=== PATIENT | male | born 1960 | race Caucasian/White ===

== ENCOUNTER 2017-11-15 14:30 | Outpatient (REF) | payer MEDICARE, MEDICAID, SELFPAY ==
[2017-11-15 21:26] LABS: Abs Immature Grans 0.02 k/cumm (0.0-0.09); Absolute Basophil Count 0.08 k/cumm (0.0-0.2); Absolute Eosinophil Count 0.46 k/cumm (0.0-0.7); Absolute Lymphocyte Count 2.71 k/cumm (1.2-3.4); Absolute Monocyte Count 0.83 k/cumm (0.11-0.7); Eosinophils % 5.9; HCT 41.6 % (40.0-50.0); HGB 13.8 g/dL (13.5-17.5); Immature Grans % 0.3; Lymphocytes % 34.7; Mean Corp. HGB Concentration 33.2 g/dL (32.0-36.0); Mean Corpuscular Volume 93.5 fL (80-95); Mean Platelet Volume 11.3 fL (8.0-11.0); Monocytes % 10.6; Neutrophils % 47.5; Platelet Count 268 x1000/uL (130-400); RBC 4.45 m/cumm (4.50-6.00); RBC Distribution Width 12.6 % (11.8-14.1)
[2017-11-15 21:37] LABS: ALT 21 U/L (12-78); AST 16 U/L (15-37); Albumin 3.6 g/dL (3.4-5.0); Alkaline Phosphatase 92 U/L (46-116); Anion Gap 5.7 mmol/L (3-11); BUN 16 mg/dL (7-18); Bilirubin, Total 0.3 mg/dL (0.2-1.0); CO2 26.3 mmol/L (21.0-32.0); CREATININE 1.08 mg/dL (0.70-1.30); Calcium 8.5 mg/dL (8.5-10.1); Chloride 107 mmol/L (98-107); Glucose 115 mg/dL (70-100); Potassium 4.7 mmol/L (3.5-5.1); Sodium 139 mmol/L (136-145); Total Protein 6.8 g/dL (6.4-8.2)
== END 2017-11-15 14:50 ==
LOC: NCHCN 14:30
PROVIDERS: PCP Nurse Practitioner; Visit Provider Nurse Practitioner
DX: Z51.81 Encounter for therapeutic drug level monitoring (principal)
CPT/HCPCS: 80053; 85025

== ENCOUNTER 2018-04-11 10:45 | Outpatient (REF) | payer MEDICARE, MEDICAID, SELFPAY ==
[2018-04-11 13:58] LABS: Abs Immature Grans 0.01 k/cumm (0.0-0.09); Absolute Basophil Count 0.09 k/cumm (0.0-0.2); Absolute Eosinophil Count 0.33 k/cumm (0.0-0.7); Absolute Lymphocyte Count 2.26 k/cumm (1.2-3.4); Absolute Monocyte Count 0.69 k/cumm (0.11-0.7); Absolute Neutrophil Count 3.28 k/cumm (1.2-6.7); Basophils % 1.4; HCT 42.7 % (40.0-50.0); HGB 14.3 g/dL (13.5-17.5); Immature Grans % 0.2; Lymphocytes % 33.9; Mean Corp. HGB Concentration 33.5 g/dL (32.0-36.0); Mean Corpuscular Hemoglobin 30.4 pg (27.0-33.0); Mean Corpuscular Volume 90.9 fL (80-95); Mean Platelet Volume 11.3 fL (8.0-11.0); Monocytes % 10.4; Neutrophils % 49.1; Platelet Count 277 x1000/uL (130-400); RBC Distribution Width 12.8 % (11.8-14.1); White Blood Cell Count 6.66 k/cumm (4.4-10.8)
[2018-04-11 15:32] LABS: Hemoglobin A1C 5.7 % (4.5-6.2)
== END 2018-04-11 11:05 ==
LOC: NCHCN 10:45
PROVIDERS: PCP Nurse Practitioner; Visit Provider Nurse Practitioner
DX: Z51.81 Encounter for therapeutic drug level monitoring (principal); Z79.899 Other long term (current) drug therapy; R73.09 Other abnormal glucose
CPT/HCPCS: 83036; 85025

== ENCOUNTER 2018-04-11 15:31 | Outpatient (REF) | payer MEDICARE, MEDICAID, SELFPAY ==
[2018-04-11 22:13] LABS: ALT 19 U/L (12-78); AST 16 U/L (15-37); Alkaline Phosphatase 101 U/L (46-116); Anion Gap 9.3 mmol/L (3-11); BUN 19 mg/dL (7-18); Bilirubin, Total 0.5 mg/dL (0.2-1.0); CO2 25.7 mmol/L (21.0-32.0); CREATININE 0.95 mg/dL (0.70-1.30); Calcium 9.1 mg/dL (8.5-10.1); Chloride 106 mmol/L (98-107); Glucose 103 mg/dL (70-100); Potassium 4.3 mmol/L (3.5-5.1); Sodium 141 mmol/L (136-145); Total Protein 7.2 g/dL (6.4-8.2)
== END 2018-04-11 15:51 ==
LOC: NCHCN 15:31
PROVIDERS: PCP Nurse Practitioner; Visit Provider Nurse Practitioner
DX: Z51.81 Encounter for therapeutic drug level monitoring (principal); Z79.899 Other long term (current) drug therapy; R69 Illness, unspecified
CPT/HCPCS: 80053

== ENCOUNTER 2018-10-18 12:09 | Outpatient (REF) | payer MEDICARE, MEDICAID, SELFPAY ==
[2018-10-18 21:44] LABS: Anion Gap 4.4 mmol/L (3-11); BUN 13 mg/dL (7-18); CO2 29.6 mmol/L (21.0-32.0); CREATININE 1.03 mg/dL (0.70-1.30); Calcium 9.3 mg/dL (8.5-10.1); Chloride 105 mmol/L (98-107); Glucose 97 mg/dL (70-100); Sodium 139 mmol/L (136-145)
[2018-10-18 22:06] LABS: Hemoglobin A1C 5.8 % (4.5-6.2)
== END 2018-10-18 12:29 ==
LOC: NCHCN 12:09
PROVIDERS: PCP Nurse Practitioner; Visit Provider Nurse Practitioner Family
DX: R73.09 Other abnormal glucose (principal); Z79.899 Other long term (current) drug therapy
CPT/HCPCS: 80048; 83036

== ENCOUNTER 2018-11-29 13:38 | Outpatient (CLI) | payer MEDICARE, MEDICAID, SELFPAY ==
[2018-11-30 10:25] LABS: Measles IgG Antibody Positive; Mumps Antibody IgG Positive
[2018-11-30 23:26] LABS: Measles (Rubeola), IgM Negative (Negative)
[2018-12-01 14:07] LABS: Thiamine (Vitamin B1), WB 91 nmol/L (70-180)
== END 2018-11-29 13:58 ==
PROVIDERS: PCP Nurse Practitioner; Visit Provider Nurse Practitioner Family
DX: G31.09 Other frontotemporal neurocognitive disorder (principal); Z01.84 Encounter for antibody response examination
CPT/HCPCS: 36415; 86765; 84425; 86735

== ENCOUNTER 2019-07-11 10:09 | Outpatient (REF) | payer MEDICARE, MEDICAID, SELFPAY ==
[2019-07-11 20:38] LABS: Anion Gap 2.2 mmol/L (3-11); BUN 15 mg/dL (7-18); CO2 30.8 mmol/L (21.0-32.0); CREATININE 0.99 mg/dL (0.70-1.30); Calcium 8.9 mg/dL (8.5-10.1); Calculated LDL 106 mg/dL (<100); Chloride 105 mmol/L (98-107); Cholesterol 159 mg/dL (<200); Glucose 94 mg/dL (74-106); HDL Cholesterol 39 mg/dL (40-60); Potassium 3.8 mmol/L (3.5-5.1); Sodium 138 mmol/L (136-145); Triglyceride 70 mg/dL (<150)
[2019-07-11 20:45] LABS: Hemoglobin A1C 5.2 % (3.8-5.6)
[2019-07-13 10:25] LABS: PSA, Screening 0.5 ng/mL (0.0-4.5)
== END 2019-07-11 10:29 ==
LOC: NCHCN 10:09
PROVIDERS: PCP Nurse Practitioner; Visit Provider Physician Assistant
DX: R73.03 Prediabetes (principal); E78.89 Other lipoprotein metabolism disorders; Z12.5 Encounter for screening for malignant neoplasm of prostate; Z13.6 Encounter for screening for cardiovascular disorders
CPT/HCPCS: 80048; 80061; 84153; 83036

== ENCOUNTER 2020-11-18 12:56 | Outpatient (REF) | payer MEDICARE, MEDICAID, SELFPAY ==
[2020-11-18 17:02] LABS: Anion Gap 8.3 mmol/L (3-11); BUN 13 mg/dL (7-18); CO2 27.7 mmol/L (21.0-32.0); CREATININE 1.2 mg/dL (0.70-1.30); Calcium 9.4 mg/dL (8.5-10.1); Chloride 103 mmol/L (98-107); Glucose 98 mg/dL (74-106); Potassium 4.8 mmol/L (3.5-5.1); Sodium 139 mmol/L (136-145)
[2020-11-19 12:50] LABS: PSA, Diagnostic 0.2 ng/mL (0.0-4.5)
== END 2020-11-18 12:57 | disposition home or self-care (01) ==
LOC: NCHCN 12:56
PROVIDERS: PCP Nurse Practitioner; Visit Provider Nurse Practitioner Family
DX: N40.0 Benign prostatic hyperplasia without lower urinary tract symptoms (principal); Z51.81 Encounter for therapeutic drug level monitoring
CPT/HCPCS: 80048; 84153

== ENCOUNTER 2022-04-22 12:37 | Outpatient (REF) | payer MEDICARE, MEDICAID, SELFPAY ==
[2022-04-22 15:09] LABS: HCT 40.6 % (40.0-50.0); HGB 13.6 g/dL (13.5-17.5); MCH 30.3 pg (27.0-33.0); MCHC 33.5 % (32.0-36.0); MCV 90 fL (80-95); MPV 10.8 fL (8.0-11.0); Platelet Count 243 10^3/uL (130-400); RBC 4.49 10^6/uL (4.36-5.78); RDW 12.7 % (11.8-14.1); RDW-SD 42.3 fL; WBC 6.89 10^3/uL (4.4-10.8)
[2022-04-22 15:54] LABS: ALT 13 U/L (16-63); AST 13 U/L (15-37); Albumin 3.5 g/dL (3.4-5.0); Alkaline Phosphatase 83 U/L (46-116); Anion Gap 5.1 mmol/L (3-11); BUN 20 mg/dL (7-18); Bilirubin, Total 0.3 mg/dL (0.2-1.0); CO2 29.9 mmol/L (21.0-32.0); CREATININE 1.1 mg/dL (0.70-1.30); Calcium 9.2 mg/dL (8.5-10.1); Calculated LDL 168 mg/dL (<100); Chloride 108 mmol/L (98-107); Cholesterol 229 mg/dL (<200); Estimated GFR 75.43 (mL/min/1.73m2); Glucose 88 mg/dL (74-106); HDL Cholesterol 47 mg/dL (40-60); Potassium 4.4 mmol/L (3.5-5.1); Sodium 143 mmol/L (136-145); TSH (W/Ref FT4) 2.35 uIU/mL (0.36-3.74); Total Protein 6.6 g/dL (6.4-8.2); Triglyceride 73 mg/dL (<150)
[2022-04-22 22:48] LABS: PSA, Screening 0.2 ng/mL (<=4.5)
== END 2022-04-22 12:38 | disposition home or self-care (01) ==
LOC: NCHCN 12:37
PROVIDERS: PCP Nurse Practitioner; Visit Provider Nurse Practitioner Family
DX: E78.5 Hyperlipidemia, unspecified (principal); R73.03 Prediabetes; N40.0 Benign prostatic hyperplasia without lower urinary tract symptoms; Z12.5 Encounter for screening for malignant neoplasm of prostate
CPT/HCPCS: 80053; 80061; 84153; 85027; 84443

== ENCOUNTER 2022-10-08 14:59 | Outpatient (REF) | payer MEDICARE, MEDICAID, SELFPAY ==
[2022-10-08 16:30] LABS: HCT 41.8 % (40.0-50.0); MCH 30.2 pg (27.0-33.0); MCHC 33.5 % (32.0-36.0); MCV 90 fL (80-95); MPV 11.6 fL (8.0-11.0); Platelet Count 242 10^3/uL (130-400); RBC 4.63 10^6/uL (4.36-5.78); RDW 12.6 % (11.8-14.1); RDW-SD 41.3 fL; WBC 7.66 10^3/uL (4.4-10.8)
[2022-10-08 16:38] LABS: Iron 52 ug/dL (65-175); Total Iron Binding Capacity 201 ug/dL (250-450); Transferrin Sat 26 % (20-55)
[2022-10-08 16:48] LABS: ALT 14 U/L (16-63); AST 11 U/L (15-37); Albumin 3.8 g/dL (3.4-5.0); Alkaline Phosphatase 101 U/L (46-116); Anion Gap 8.9 mmol/L (3-11); BUN 17 mg/dL (7-18); Bilirubin, Total 0.4 mg/dL (0.2-1.0); CO2 25.1 mmol/L (21.0-32.0); CREATININE 1.2 mg/dL (0.70-1.30); Chloride 105 mmol/L (98-107); Estimated GFR 67.53 (mL/min/1.73m2); Glucose 93 mg/dL (74-106); Potassium 4.3 mmol/L (3.5-5.1); Sodium 139 mmol/L (136-145); TSH 3.02 uIU/mL (0.36-3.74); Total Protein 6.9 g/dL (6.4-8.2)
== END 2022-10-08 15:00 | disposition home or self-care (01) ==
LOC: NCHCN 14:59
PROVIDERS: PCP Nurse Practitioner; Visit Provider Nurse Practitioner Family
DX: R63.4 Abnormal weight loss (principal); R79.89 Other specified abnormal findings of blood chemistry
CPT/HCPCS: 80053; 85027; 83540; 83550; 84443

== ENCOUNTER 2022-11-13 16:14 | Outpatient (REF) | payer MEDICARE, MEDICAID, SELFPAY ==
[2022-11-13 16:23] LABS: Ferritin 137 ng/mL (26-388)
[2022-11-13 17:27] LABS: Iron 63 ug/dL (65-175); Total Iron Binding Capacity 219 ug/dL (250-450); Transferrin Sat 29 % (20-55)
== END 2022-11-13 16:15 | disposition home or self-care (01) ==
LOC: NCHCN 16:14
PROVIDERS: PCP Nurse Practitioner; Visit Provider Nurse Practitioner Family
DX: R00.0 Tachycardia, unspecified (principal); E61.1 Iron deficiency
CPT/HCPCS: 82728; 83540; 83550

== ENCOUNTER 2023-07-07 16:51 | Outpatient (REF) | payer MEDICARE, MEDICAID, SELFPAY ==
[2023-07-07 21:48] LABS: HCT 43.2 % (40.0-50.0); HGB 14.9 g/dL (13.5-17.5); MCHC 34.5 % (32.0-36.0); MCV 90 fL (80-95); MPV 11.7 fL (8.0-11.0); Platelet Count 219 10^3/uL (130-400); RBC 4.81 10^6/uL (4.36-5.78); RDW 12.1 % (11.8-14.1); RDW-SD 39.8 fL
[2023-07-07 21:56] LABS: Iron 77 ug/dL (65-175); Total Iron Binding Capacity 245 ug/dL (250-450); Transferrin Sat 31 % (20-55)
[2023-07-07 22:12] LABS: ALT 25 U/L (16-63); AST 16 U/L (15-37); Albumin 3.9 g/dL (3.4-5.0); Alkaline Phosphatase 82 U/L (46-116); Anion Gap 9.3 mmol/L (3-11); BUN 20 mg/dL (7-18); Bilirubin, Total 0.8 mg/dL (0.2-1.0); CO2 24.7 mmol/L (21.0-32.0); Calcium 9.4 mg/dL (8.5-10.1); Calculated LDL 84 mg/dL (<100); Chloride 106 mmol/L (98-107); Cholesterol 147 mg/dL (<200); Estimated GFR 83.52 (mL/min/1.73m2); Ferritin 99 ng/mL (26-388); Glucose 91 mg/dL (74-106); HDL Cholesterol 51 mg/dL (40-60); Potassium 4.4 mmol/L (3.5-5.1); Sodium 140 mmol/L (136-145); Total Protein 7.1 g/dL (6.4-8.2); Triglyceride 62 mg/dL (<150)
== END 2023-07-07 16:52 | disposition home or self-care (01) ==
LOC: NCHCN 16:51
PROVIDERS: Visit Provider Nurse Practitioner Family
DX: E78.5 Hyperlipidemia, unspecified (principal); E61.1 Iron deficiency; G31.09 Other frontotemporal neurocognitive disorder
CPT/HCPCS: 80053; 80061; 85027; 82728; 83540; 83550; 84443

== ENCOUNTER 2024-03-08 17:13 | Outpatient (REF) | payer MEDICARE, MEDICAID, SELFPAY ==
[2024-03-08 21:57] LABS: HCT 46.2 % (40.0-50.0); HGB 15.3 g/dL (13.5-17.5); MCH 30.5 pg (27.0-33.0); MCHC 33.1 % (32.0-36.0); MCV 92 fL (80-95); MPV 11.2 fL (8.0-11.0); Platelet Count 231 10^3/uL (130-400); RBC 5.02 10^6/uL (4.36-5.78); RDW 12.9 % (11.8-14.1); RDW-SD 43.6 fL; WBC 8.43 10^3/uL (4.4-10.8)
[2024-03-08 21:58] LABS: Lithium < 0.2 mmol/L (0.6-1.2)
[2024-03-08 22:16] LABS: ALT 20 U/L (16-63); AST 17 U/L (15-37); Albumin 4.1 g/dL (3.4-5.0); Alkaline Phosphatase 78 U/L (46-116); Anion Gap 8.1 mmol/L (3-11); BUN 17 mg/dL (7-18); Bilirubin, Total 0.39 mg/dL (0.2-1.0); CO2 29.9 mmol/L (21.0-32.0); CREATININE 1.2 mg/dL (0.70-1.30); Calcium 9.6 mg/dL (8.5-10.1); Chloride 102 mmol/L (98-107); Estimated GFR 67.11 (mL/min/1.73m2); Glucose 87 mg/dL (74-106); Potassium 4.1 mmol/L (3.5-5.1); Sodium 140 mmol/L (136-145); TSH (W/Ref FT4) 2.09 uIU/mL (0.36-3.74); Total Protein 7.4 g/dL (6.4-8.2); Vitamin B12 892 pg/mL (193-986)
[2024-03-08 22:22] LABS: Hemoglobin A1C 5.5 % (<5.7)
== END 2024-03-08 17:14 | disposition home or self-care (01) ==
LOC: NCHCN 17:13
PROVIDERS: Visit Provider Nurse Practitioner Family
DX: R73.03 Prediabetes (principal); R45.1 Restlessness and agitation; Z51.81 Encounter for therapeutic drug level monitoring
CPT/HCPCS: 80053; 85027; 80178; 82607; 83036; 84443

== ENCOUNTER 2024-05-31 16:49 | Outpatient (REF) | payer MEDICARE, MEDICAID, SELFPAY ==
[2024-05-31 22:07] LABS: Abs Immature Grans 0.01 10^3/uL (0.0-0.06); Absolute Basophil Count 0.08 10^3/uL (0.0-0.2); Absolute Eosinophil Count 0.36 10^3/uL (0.0-0.7); Absolute Monocyte Count 0.97 10^3/uL (0.1-0.8); Absolute Neutrophil Count 3.78 10^3/uL (1.2-6.7); Basophils % 1.1 %; Eosinophils % 4.7 %; HCT 42.3 % (40.0-50.0); HGB 13.8 g/dL (13.5-17.5); Immature Grans % 0.1 %; Lymphocytes % 31.6 %; MCH 31.1 pg (27.0-33.0); MCHC 32.6 % (32.0-36.0); MCV 95 fL (80-95); MPV 10.8 fL (8.0-11.0); Monocytes % 12.8 %; Neutrophils % 49.7 %; Platelet Count 226 10^3/uL (130-400); RBC 4.44 10^6/uL (4.36-5.78); RDW 12.9 % (11.8-14.1); RDW-SD 45.3 fL
[2024-05-31 22:22] LABS: VALPROIC ACID 40.9 ug/mL
[2024-05-31 22:25] LABS: ALT 18 U/L (16-63); AST 15 U/L (15-37); Albumin 3.3 g/dL (3.4-5.0); Alkaline Phosphatase 62 U/L (46-116); BUN 16 mg/dL (7-18); Bilirubin, Total 0.3 mg/dL (0.2-1.0); Calcium 9.1 mg/dL (8.5-10.1); Chloride 108 mmol/L (98-107); Estimated GFR 83.01 (mL/min/1.73m2); Glucose 100 mg/dL (74-106); Potassium 4.4 mmol/L (3.5-5.1); Sodium 145 mmol/L (136-145); Total Protein 6.3 g/dL (6.4-8.2)
[2024-05-31 22:33] LABS: Hemoglobin A1C 5.5 % (<5.7)
[2024-06-01 19:18] LABS: PSA, Screening 0.2 ng/mL (<=4.5)
== END 2024-05-31 16:50 | disposition home or self-care (01) ==
LOC: NCHCN 16:49
PROVIDERS: Visit Provider Nurse Practitioner Family
DX: Z12.5 Encounter for screening for malignant neoplasm of prostate (principal); Z51.81 Encounter for therapeutic drug level monitoring
CPT/HCPCS: 80053; 84153; 80164; 83036; 85025

== ENCOUNTER 2024-06-30 00:52 | Outpatient (CLI) | payer MEDICARE, MEDICAID, SELFPAY ==
--- NOTE | 2024-06-30 14:00 | DI.US_ITS ---
APPROVED REPORT EXAM: Comprehensive 2D, Doppler, and color-flow Echocardiogram Patient Location: Out-Patient Pellet Post Inspector: Juana Ott RDCS (AE) Indications: Unspecified atrial flutter Other Information Study Quality: Adequate Conclusion Normal left ventricular wall thickness and chamber size. Ejection fraction is 55%. Wall motion is n ormal Normal right ventricular size and function Both atria are normal in size There are no structural valvular abnormalities Trace aortic and mitral regurgitation Ascending aorta measures 4.09 cm Wall motion Left Ventricle The left ventricle is normal size. The left ventricular systolic function is normal. The left ventric ular ejection fraction is within the normal range. There is normal left ventricular wall thickness. T here is normal LV segmental wall motion. There is no ventricular septal defect visualized. LVEF is 55 %. Right Ventricle The right ventricle is normal size. The right ventricular systolic function is normal. Atria The left atrium size is normal. The right atrium size is normal. Atrial septum is thin and hypermobi le Aortic Valve The aortic valve is normal in structure. There is no aortic valvular stenosis. Trace aortic regurgita tion. Mitral Valve The mitral valve is normal in structure. No evidence of mitral valve stenosis. Trace mitral regurgita tion. Tricuspid Valve The tricuspid valve is normal in structure. There is no tricuspid valve stenosis. Trace tricuspid reg urgitation. Unable to assess PA pressure. Pulmonic Valve The pulmonary valve is normal in structure. There is no pulmonic valvular stenosis. There is no pulmo morales valvular regurgitation. Great Vessels Aortic root is mildly dilated. The ascending aorta is mildly dilated. Aortic arch is not well visual ized. IVC is normal in size and collapses >50% with inspiration. Pericardium There is no pericardial effusion. 2D Dimensions IVSD d PLAX 0.91 cm M: 0.6-1.2 Ao Root d 3.93 cm M: 3.1 - 3.7 LVPW d PLAX 0.93 cm M: 0.6 - 1.2 Ao Asc Diam d 4.09 cm M: 2.6 - 3.4 LVID d PLAX 5.10 cm M: 4.2 - 5.8 LVDs 3.63 cm M: 2.5 - 4.0 LV EF Teichholz 55.1 % FS 28.82 % LV EDV (Teich) 123.8 mL LV ESV (Teich) 55.5 mL M-Mode TAPSE 1.78 cm (M/F) >1.7 Auto EF LV EDV A4C 108.8 mL LV EDV A2C 109.9 mL LV EDV BP 110.1 mL LV ESV A4C 49.7 mL LV ESV A2C 49.8 mL LV ESV BP 50.0 mL LVEF(%) A4C 54.3 % LVEF(%) A2C 54.7 % LVEF(%) BP 54.6 % LV SV A4C 59.1 ml LV SV A2C 60.1 ml LV SV BP 60.1 ml LV CO A4C 4.9 L/min LV CO A2C 4.8 L/min LV CO BP 4.9 L/min HR A4C 82.38 BPM HR A2C 80.54 BPM LV EDV Index (BP) LA Volume LA Length A4C 4.1 cm LA Length A2C 4.8 cm LA Area A4C s 12.30 cm2 LA Area A2C s 16.44 cm2 LA Vol A4C A-L 31.28 mL LA Vol A2C A-L 47.34 mL LA Vol Biplane A-L 41.8 mL LA Vol/BSA A4C A-L LA Vol/BSA A2C A-L LA Vol/BSA BP A-L 20.3 mL/m2 LA Vol A4C MOD 27.8 mL LA Vol A2C MOD 42.1 mL LA Vol BP MOD 37.0 mL RA Volume RA Area A4C 14.8 cm2 RA ESV A4C (A-L) 37.2mL RA Vol/BSA A4C A-L RA Length A4C 5.0 cm RA ESV A4C (MOD) 33.5mL LV Diastology MV E' medial 0.071 (>0.07 m/s) MV E Vmax 0.44 (0.4-1.3 m/s) MV E/E' MED 6.11 (<14) MV A Vmax 0.65 (0.4-1.3 m/s) MV E' lateral 0.087 (>0.1 m/s) E/A Ratio 0.7 MV E/E' LAT 4.99 (<14) MV E' Average 0.079 m/s MV E/E'(average) 5.49 Aortic Valve AoV Vmax 0.98 m/s LVOT Vmax 0.80 m/s AoV Peak Grad 3.8 mmHg LVOT Peak Grad 2.6 mmHg AoV Area (Vmax) 2.91 cm2 LVOT VTI 0.149 m AoV VTI 0.166 m LVOT Mean Grad 1.6 mmHg AoV Mean Enrico. 0.68 m/s LVOT SV 53.01 mL AoV Mean Grad 2.1 mmHg LVOT Diam s 2.10 cm AoV Area (VTI) 3.20 cm2 AV Regurg Peak Gr. 3.81 mmHg Velocity Ratio 0.82 Mitral Valve MV DT 235 (160-240 msec) MV Vmax TIPS 0.53 m/s MV Mean Grad 0.5 (<2mmHg) MV VTI 0.158 m Pulmonary Valve PV Vmax 0.70 (0.5-1.5 m/s) RVOT Vmax 0.55 m/s PV Peak Grad 2.0 mmHg RVOT Peak Gr. 1.2 mmHg PV Mean Enrico 0.55 m/s RVOT VTI 0.088 m PV Mean Grad 1.3 mmHg RVOT Mean Gr. 0.9 mmHg Tricuspid Valve TV S' 0.10 m/s
== END 2024-06-30 01:12 ==
LOC: DI 01:01
PROVIDERS: Visit Provider Internal Medicine Cardiovascular Disease
DX: I48.92 Unspecified atrial flutter (principal); I08.0 Rheumatic disorders of both mitral and aortic valves
CPT/HCPCS: 93306

== ENCOUNTER 2024-10-19 20:51 | Outpatient (REF) | payer MEDICARE, MEDICAID, SELFPAY ==
[2024-10-19 21:19] LABS: Glucose 500 mg/dL (Negative)
== END 2024-10-19 20:52 | disposition home or self-care (01) ==
LOC: NCHCN 20:51
PROVIDERS: Visit Provider Nurse Practitioner Family
DX: R31.29 Other microscopic hematuria (principal)
CPT/HCPCS: 81003

== ENCOUNTER 2024-12-13 15:52 | Outpatient (REF) | payer MEDICARE, MEDICAID, SELFPAY ==
[2024-12-13 14:26] LABS: Abs Immature Grans 0.02 10^3/uL (0.0-0.06); HCT 40.7 % (40.0-50.0); HGB 13.3 g/dL (13.5-17.5); Immature Grans % 0.3 %; MCH 32.0 pg (27.0-33.0); MCHC 32.7 % (32.0-36.0); MCV 98 fL (80-95); MPV 10.2 fL (8.0-11.0); Platelet Count 207 10^3/uL (130-400); RBC 4.15 10^6/uL (4.36-5.78); RDW 13.4 % (11.8-14.1); RDW-SD 48.7 fL; WBC 5.85 10^3/uL (4.4-10.8)
[2024-12-13 14:50] LABS: Iron 107 ug/dL (65-175); Total Iron Binding Capacity 221 ug/dL (250-450); Transferrin Sat 48 % (20-55)
[2024-12-13 14:54] LABS: ALT 16 U/L (16-63); AST 16 U/L (15-37); Albumin 3.1 g/dL (3.4-5.0); Alkaline Phosphatase 64 U/L (46-116); Anion Gap 5.7 mmol/L (3-11); BUN 20 mg/dL (7-18); Bilirubin, Total 0.5 mg/dL (0.2-1.0); CO2 30.3 mmol/L (21.0-32.0); Calcium 8.8 mg/dL (8.5-10.1); Chloride 104 mmol/L (98-107); Cholesterol 157 mg/dL (<200); Ferritin 289 ng/mL (26-388); Glucose 87 mg/dL (74-106); HDL Cholesterol 47 mg/dL (>or=40); Potassium 4.6 mmol/L (3.5-5.1); Sodium 140 mmol/L (136-145); Total Protein 6.7 g/dL (6.4-8.2)
[2024-12-13 16:01] LABS: Hemoglobin A1C 5.4 % (<5.7)
== END 2024-12-13 15:53 | disposition home or self-care (01) ==
LOC: NCHCN 15:52
PROVIDERS: PCP Nurse Practitioner Family; Visit Provider Nurse Practitioner Family
DX: E78.5 Hyperlipidemia, unspecified (principal); E61.1 Iron deficiency; G91.9 Hydrocephalus, unspecified; R73.03 Prediabetes
CPT/HCPCS: 80053; 80061; 82728; 83036; 83540; 83550; 85025

== ENCOUNTER → 2024-12-14 13:43 | Outpatient (BNVA) | payer MEDICARE, MEDICAID, SELFPAY | PROVIDERS: PCP Nurse Practitioner Family; Referring Provider Nurse Practitioner Family; Visit Provider Physical Therapy Assistant | DX: Z12.11 Encounter for screening for malignant neoplasm of colon (principal); R10.13 Epigastric pain; Z86.0101 Personal history of adenomatous and serrated colon polyps | CPT/HCPCS: S0285 ==

== ENCOUNTER 2025-01-22 06:04 | Day surgery (SDC) | payer MEDICARE, MEDICAID, SELFPAY ==
[2025-01-22 06:19] VITALS: BP 124/90; PULSE 85; RESP 16; TEMP 36.9; O2SAT 95
[2025-01-22] MEDS: Na Phosphate Enema-Adult 133 ML BTL PR (06:39)
--- NOTE | 2025-01-22 07:05 | W.PM.HP.N ---
Date of service: 01/22/25 Time of Service: 07:06 Assessment and Plan Assessment and plan (1) GERD (gastroesophageal reflux disease): Status: Chronic Assessment and plan: refractory to PPIs, symptoms include dyspepsia. Endoscopic eval indicated. proceed w EGD. (2) Encounter for colonoscopy due to history of adenomatous colonic polyps: Status: Acute Assessment and plan: Colonoscopy indicated. proceed with colonoscopy. Discussed egd and colonoscopy with guardian sister and consent obtained by phone on 12/20/24. Some wheezing reported on nurse exam, auscultation on my exam is normal with airway sounds due to vocalization. Will defer to anesthesias assessment for safety of proceeding. I feel it is safe to proceed. no URI symptoms, no cough, no recent illness. History of Present Illness Narrative: Chief complaint Here for egd.colonoscopy HPI: 64yo M here for egd and colonoscopy. consent has been obtained from his sister who is his legal guardian. EGD is for refractory GERD, colonoscopy is for history of tubular adenoma polyp x2 in 2018. He denies complaints. Caregiver is here with him and notes prep didnt start working til after midnight but that by 3am when he put jyoti in to shower, the stools were looking clear. Jyoti is pleasant and conversive. No fam hx colorectal cancer. No melena, rectal bleeding, abd pain. PFSH All Active Problems (Updated 01/22/25 @ 07:11 by Nancy Kern MD) Encounter for colonoscopy due to history of adenomatous colonic polyps (Acute) GERD (gastroesophageal reflux disease) (Chronic) Atherosclerosis (Acute) identified on ECHO 2022 Ascending aorta dilation (Acute) 4.09cm as of 06/30/24 ECHO yearly surveillance recommended by PCP Leonor Palacios [facility] Frontotemporal dementia (Acute) Sensorineural hearing loss of both ears (Chronic) Abnormal auditory perception (Chronic) BPH (benign prostatic hyperplasia) (Acute 07/28/17) Dementia associated with alcoholism with behavioral disturbance (Acute 07/28/17) Tubular adenoma of colon (Acute 04/12/17) Mental disturbance (Acute) Medical History Patent foramen ovale Atrial flutter inpt cardioversion [facility] [place] 01/18/23 echo preformed on same visit date Aortic root aneurysm Tinnitus Hyperlipidemia Dyspepsia Dementia (?) Anxiety Insomnia Alcohol dependence Surgical History Colonoscopy - MAC (04/12/17) Social History Smoking/Tobacco Use Status: Former Tobacco Use Quit Date: 02/09/16 Smoking risk assessment performed?: Yes Alcohol Intake: former Drug use: Rarely Substance use type: marijuana Details: pt with hx of ETOH dependence. Last cannabis was 1 week ago. Housing: house Do you feel safe at home: Yes Additional [facility] Med[facility] Allergies and Home Medications Allergies Allergy/AdvReac Type Severity Reaction Status Date / Time No Known Allergies Allergy Verified 01/22/25 06:14 Home Medications ?Medication ?Instructions ?Recorded ?Confirmed ?Type aspirin 81 mg tablet,delayed 1 tab PO DAILY 09/16/15 01/22/25 History release (Aspir-) omega-3 fatty acids 500 mg capsule 2 tab PO DAILY 09/16/15 01/22/25 History (Fish Oil) Atorvastatin Calcium 20 mg PO DAILY 03/19/17 01/22/25 History Loratadine 10 mg PO DAILY 03/19/17 01/22/25 History melatonin 3 mg tablet 6 mg PO DAILY 03/19/17 01/22/25 History ranitidine HCl 300 mg tablet 300 mg PO DAILY 03/19/17 01/22/25 History Multivitamin Gummy PO DAILY 08/12/17 Clinic finasteride 5 mg tablet (Proscar) 5 mg PO DAILY #90 tab-caps 08/17/17 01/22/25 Rx apixaban 5 mg tablet (Eliquis) 5 mg PO BID 01/19/25 01/19/25 History divalproex 250 mg tablet,extended 1,750 mg PO HS 01/19/25 01/22/25 History release 24 hr empagliflozin 10 mg tablet 10 mg PO QAM 01/19/25 01/19/25 History (Jardiance) quetiapine 200 mg tablet 200 mg PO BID 01/22/25 01/22/25 History Exam Narrative Exam Narrative: awake, NAD eomi, MMM midline trachea, neck is symmetric PULM: normal resp effort, equal chest rise with respiration, lungs auscultated today and are clear on my exam. There is distracting airway noise due to patient vocalizing during expiration. I dont hear wheezing CARDIAC: normal PMI, no jvd, regular rate, normal perfusion abdomen is nondistended. extremities are without deformity, normal movement of all four extremities speech is clear and coherent mood and affect are congruent, jovial, no focal neurological deficits skin without rash Results Last Vital Signs Temp 98.4 F 01/22/25 06:19 Pulse 85 01/22/25 06:19 Resp 16 01/22/25 06:19 BP 124/90 01/22/25 06:19 Pulse Ox 95 01/22/25 06:19 VTE Prohylaxis Risk Level: None Contraindications: None Prophylaxis: Patient ambulatory Time Spent Time spent with Patient: 40-54 minutes Time was spent: preparing to see the patient(eg.review tests), obtaining and/or reviewing separately otained hiistory, referring, communicating with other health health care legal assistant, counseling the patient and care coordination
--- NOTE | 2025-01-22 07:30 | ANES.PREOP_ITS ---
General Info Date of Service Date Performed: 01/22/25 Height: 5 ft 8 in Weight: 87.5 kg Body Mass Index (BMI): 29.3 Surgical Procedure: Operation Date: 01/22/25 07:35 Proposed Procedure Side Surgeon p Colonoscopy/Gastroscopy Nancy Kern MD Meds Allergies and Home Medications Allergies Allergy/AdvReac Type Severity Reaction Status Date / Time No Known Allergies Allergy Verified 01/22/25 06:14 Home Medication ?Medication ?Instructions ?Recorded aspirin 81 mg tablet,delayed 1 tab PO DAILY 09/16/15 release (Aspir-) omega-3 fatty acids 500 mg capsule 2 tab PO DAILY 09/23 (Fish Oil) Atorvastatin Calcium 20 mg PO DAILY 03/19/17 Loratadine 10 mg PO DAILY 03/19/17 melatonin 3 mg tablet 6 mg PO DAILY 03/19/17 ranitidine HCl 300 mg tablet 300 mg PO DAILY 03/19/17 finasteride 5 mg tablet (Proscar) 5 mg PO DAILY #90 ta b-caps 08/17/17 apixaban 5 mg tablet (Eliquis) 5 mg PO BID 01/19/25 divalproex 250 mg tablet,extended 1,750 mg PO HS 01/19 release 24 hr empagliflozin 10 mg tablet 10 mg PO QAM 01/19/25 (Jardiance) quetiapine 200 mg tablet 200 mg PO BID 01/22/25 Current Visit Medications: Current Medications Generic Name Dose Route Start Last Admin Trade Name Freq PRN Reason Stop Dose Admin Ringer's Solution 1,000 mls @ 80 mls/hr 01/22/25 06:00 IV 01/22/25 23:59 INFUSION PUNEET Sodium Biphosphate/Sodium Phosphate 133 ml 01/22/25 06:00 01/22/25 06:39 Na Phosphate Enema-Adult 133 Ml Btl NH 01/22/25 23:59 1 btl DIRECTED PRN Administration Sodium Chloride 0 ml 01/22/25 06:00 Normal Saline Flush 10 Ml Syr IV 01/22/25 23:59 PRN PRN Sodium Chloride 0 ml 01/22/25 06:00 Normal Saline 10 Ml Vial IJ 01/22/25 23:59 DIRECTED PRN Sterile Water 0 ml 01/22/25 06:00 Water,Injection,Sterile 10 Ml Vial IJ 01/22/25 23:59 DIRECTED PRN PFSH Active Problems Active Problems: Problem Status Onset Code Encounter for colonoscopy due to history of adenomatous colonic polyps Acute Z12.11, Z86.0101 GERD (gastroesophageal reflux disease) Chronic K21.9 Atherosclerosis Acute I70.90 Ascending aorta dilation Acute I77.810 Frontotemporal dementia Acute G31.09, F02.80 Sensorineural hearing loss of both ears Chronic H90.3 Abnormal auditory perception Chronic H93.299 BPH (benign prostatic hyperplasia) Acute 07/28/17 N40.0 Dementia associated with alcoholism with behavioral disturbance Acute 07/28/17 F10.27 Tubular adenoma of colon Acute 04/12/17 D12.6 Mental disturbance Acute F99 Medical History Medical History Patent foramen ovale Atrial flutter inpt cardioversion [facility] [place] 01/18/23 echo preformed on same visit date Aortic root aneurysm Tinnitus Hyperlipidemia Dyspepsia Dementia (?) Anxiety Insomnia Alcohol dependence Surgical History Surgical History Colonoscopy - MAC (04/12/17) Tobacco Smoking/Tobacco Use Status: Former Tobacco Use Passive smoking exposure: No Alcohol Alcohol Intake: former Substance Use Substance use: Rarely Substance use type: marijuana Details: pt with hx of ETOH dependence. Last cannabis was 1 week ago. Vital Signs and Lab Results Vital Signs Most Recent Vital Signs in EMR: Most Recent Vital Signs Temp Pulse Resp BP Pulse Ox 36.9 C 85 16 124/90 95 01/22/25 06:19 01/22/25 06:19 01/22/25 06:19 01/22/25 06:19 01/22/25 06:19 Imaging and Studies Imaging and Studies Study information below may be from another EMR and interpreted by another provider. Please see original notes in EMR for more complete details. Echocardiogram Summary: 06/30/24: Conclusion Normal left ventricular wall thickness and chamber size. Ejection fraction is 55%. Wall motion is normal Normal right ventricular size and function Both atria are normal in size There are no structural valvular abnormalities Trace aortic and mitral regurgitation Ascending aorta measures 4.09 cm Anesthesia Assessment and Plan Anesthesia History Personal History: No History of Anesthesia Complications Family History: No Family History of Anesthesia Complications Exercise Tolerance Exercise Tolerance: Metabolic Equivalents>4 Cardiac & Pulmonary Exam Cardiac Exam: Normal S1/S2 Heart Sounds Pulmonary Exam: Wheezing Present (Albuterol nebulizer in DSU, significant improvement. O2 Sat improved to 100%) Implantable Cardiac Device Does patient have a Pacemaker or an ICD?: No Airway Exam Known Difficult Airway: No Mallampati Class: 3 Mouth Opening: Normal (> 3cm) Thyromental Distance: Greater than 3 cm Neck Range of Motion: Full ROM Neck Circumference: Normal Teeth Condition: Generalized Poor Dentition ASA Classification ASA Score: ASA 3 Emergency Case?: No NPO Status NPO Status: NPO Clears >2 hours, Solids >8 hours Anesthesia Plan Resuscitation Status: Full Code Anesthesia Technique: General Anesthesia Airway Planned: Natural Airway Monitors Used: Standard Monitors
[2025-01-22 07:31] VITALS: BMI 29.3
[2025-01-22] MEDS: Lactated Ringers 1,000 ML 80 ML IV (07:32)
--- NOTE | 2025-01-22 07:36 | W.PM.DSUDISC ---
Date of service: 01/22/25 Discharge Plan Disposition Patient Disposition: Home Condition: Stable Discharge Details Attending Provider: Nancy Kern Primary Care Provider: Leonor Palacios Home Meds and New Rx's Prescriptions: Continued Atorvastatin Calcium 20 MG tablet 20 mg PO DAILY ranitidine HCl 300 MG tablet 300 mg PO DAILY melatonin 3 MG tablet 6 mg PO DAILY Loratadine 10 MG TAB.RAPDIS 10 mg PO DAILY MULTIVITAMIN GUMMY PO DAILY 0RF finasteride [Proscar] 5 MG tablet 5 mg PO DAILY Qty: 90 0RF aspirin [Aspir-81] 81 MG tablet,delayed release (DR/EC) 1 tab PO DAILY Fish Oil 500 MG capsule 2 tab PO DAILY divalproex 250 mg tablet extended release 24 hr 1,750 mg PO HS Patient Comments: TAKE ONE TABLET BY MOUTH AT BEDTIME WITH 500MG Eliquis 5 mg tablet 5 mg PO BID Patient Comments: TAKE ONE TABLET BY MOUTH TWICE A DAY Jardiance 10 mg tablet 10 mg PO QAM Patient Comments: TAKE ONE TABLET BY MOUTH EVERY DAY quetiapine 200 mg tablet 200 mg PO BID Discharge Instructions Additional Instructions: EGD shows a large amount of food and liquid in stomach. Unable to complete exam, and unable to proceed with safe sedation for egd or colonoscopy. Preoperative wheezing present, this and the full stomach raises concern for intubation and risk of pneumonia. Recommend follow up with primary care provider regarding the full stomach and the lungs. I will order a gastric emptying study (a special xray) to help determine the cause of the full stomach after a period of clear liquid diet and fasting. Stomach was expected to have been empty, and it is a clue about his reflux symptoms that it was full today. will reschedule procedures for a few months from now to give adequate time for PCP and stomach evaluation. Stand Alone Forms: Anesthesia Discharge Inst., DSU Post EGD Instructions, Robina Bellamy (DSU), Portal Information Activity:: Activity as Tolerated Diet:: As Tolerated Discharge Orders Discharge Orders: Discharge Order (Routine); Ordered 01/22/25 Ordered By: Nancy Kenr DS: Diagnosis Discharge Diagnosis (1) GERD (gastroesophageal reflux disease): Status: Chronic (2) Encounter for colonoscopy due to history of adenomatous colonic polyps: Status: Acute
--- NOTE | 2025-01-22 07:41 | ENDO_ITS ---
Date of service: 01/22/25 Time of Service: 07:41 Endoscopy Report DATE OF PROCEDURE: 01/22/25 PRE-OP DIAGNOSIS: Dyspepsia, GERD POST-OP DIAGNOSIS: same PROCEDURE: EGD with biopsy SURGEON: Nancy Kern ANESTHESIA TYPE: General:No Airway ESTIMATED BLOOD LOSS: 2 PATHOLOGY: other (1. antrum biopsy) COMPLICATIONS: None DISPOSITION: same day INDICATIONS: Evaluation of upper digestive system for refractory dyspepsia PROCEDURE DESCRIPTION: Lubricated endoscope was passed through a bite block into the second portion of the duodenum. The endoscope was withdrawn and the duodenum stomach and esophageal mucosa examined. There is a large amount of solid and liquid food matter in the stomach. This precludes safe or complete exam of the stomach. Duodenum also with solid and l iquid opaque material. Suction used to remove as much fluid as possible. Scope withdrawn and procedure aborted. No complications. Assessment and plan: GERD Dyspepsia Incomplete exam due to full stomach, significant solid and liquid contents of stomach. Procedure aborted for safety. Will need to reschedule.
--- NOTE | 2025-01-22 07:43 | W.COLOREPORT ---
Date of service: 01/22/25 Time of Service: 07:43 Colonoscopy Report Date of procedure: 01/22/25 Pre-op diagnosis general: History of tubular adenoma Post-op diagnosis procedure note: same Procedure: Colonoscopy Surgeon: Nancy Kern Anesthesia Type: General:No Airway Estimated blood loss (mL): 0 Pathology: none sent Complications: None Prep: Miralax/Dulcolax Procedure Description: Informed consent was obtained and the patient was taken to the procedure area. The patient was placed in left lateral decubitus position on the procedure table. Timeout was performed. Anesthesia was induced. A lubricated colonoscope was inserted through the anus and passed to the cecum. The cecum was identified by the ileocecal valve and the appendiceal orifice. The scope was then slowly withdrawn and the colonic and rectal mucosa examined. TI intubated and examined. It appears normal. There are no colon or rectal mass lesions, polyps, AVMs. There is no inflammatory change. No diverticulosis was seen. The scope was retroflexed in the anorectal junction examined. Uncomplicated internal hemorrhoids present. Assessment and plan: History of tubular adenoma
[2025-01-22 07:58] VITALS: BP 106/85; PULSE 87; RESP 20; TEMP 36.1; O2SAT 96
[2025-01-22 08:28] VITALS: BP 123/89; PULSE 74; RESP 18; TEMP 36.2; O2SAT 96
--- NOTE | 2025-01-22 09:00 | W.ANESPOSTOP ---
Postoperative Evaluation Date, Time and Location Date Performed: 01/22/25 Time Performed: 08:45 Patient Location: Day Surgery Unit Vital Signs Most Recent Imported Vital Signs: Most Recent Vital Signs Temp Pulse Resp BP Pulse Ox 36.2 C L 74 18 123/89 96 01/22/25 08:28 01/22/25 08:28 01/22/25 08:28 01/22/25 08:28 01/22/25 08:28 Pain Score Most Recent Pain Score: Most Recent Pain Score Pain Level 0 01/22/25 08:28 Assessment Mental Status: Awake (Alert & Oriented to Patient Baseline) Airway and Respiratory Function: Patent airway with normal (patient baseline) respiratory exam Cardiovascular Function: Hemodynamically Stable Hydration Status: Adequately Hydrated Nausea & Vomiting: No Nausea or Vomiting Pain: Pt. Denies Any Pain Peripheral Nerve Block: Patient did not receive a nerve block Postoperative Comments:: Caregiver present and no further questions at this time. Follow-up scheduled with Dr. Kern.
== END 2025-01-22 08:50 | disposition home or self-care (01) ==
LOC: SUR 06:05
PROVIDERS: PCP Nurse Practitioner Family; Visit Provider Surgery
PROC: (CPT 43235; principal; 2025-01-22 07:30)
DX: Z53.8 Procedure and treatment not carried out for other reasons (principal); Z12.11 Encounter for screening for malignant neoplasm of colon; K21.9 Gastro-esophageal reflux disease without esophagitis; Z86.0101 Personal history of adenomatous and serrated colon polyps
CPT/HCPCS: 43235; J2003; J2704